=== PATIENT | female | born 1965 | race Caucasian/White ===

== ENCOUNTER 2016-09-02 13:30 | Emergency (ER) | payer SELFPAY ==
[~2016-09-02] VITALS: Ht 177.8 cm; Wt 110.0 kg
[~2016-09-02 13:30] MED LIST: ALBU0.086 NEB; ALBU8I INH; DICL75 PO; IBUP800T23 PO; METF500 PO; METH750T2 PO; TRAZ300T2 PO; TYLE3 PO; VENL100T PO
[2016-09-02 13:32] VITALS: BP 132/61; PULSE 93; RESP 20; TEMP 97.7; O2SAT 94
--- NOTE | 2016-09-02 14:19 | PD ---
HPI . sinus and ear problems Chief Complaint: ENT Complaint Time Seen by Provider: 14:19 Travel History International Travel<30 days: No Contact w/Intl Traveler<30days: No Traveled to known affect area: No History of Present Illness HPI 51 yr old female with diabetes here with complaints of sinus problems and ear pressure for a few days (4). Patient is concerned she has to return to work and thinks that she needs an antibiotic. Her primary care provider is Dr. Winston and she fears she will not be able to get into his office before needing to return to work. She admits to ear pain mainly on the right side. She has some head fullness and pressure in her face. She denies any fever or chills. She has no other complaints. PFSH Past Medical History Hx Anticoagulant Therapy: No Asthma: Yes Anxiety: Yes Depression: Yes Cardiovascular Problems: Yes (MUMMUR) Chemotherapy: No Cerebrovascular Accident: No Diabetes: Yes Diminished Hearing: No Fibromyalgia: Yes Musculoskeletal: Yes (CHRONIC BACK PAIN ) Respiratory: Yes (ASTHMA) Immunizations Current: Yes Past Surgical History Gynecologic Surgery: Yes (HYSTERECTOMY) Hysterectomy: Yes Tonsillectomy: Yes Social History Alcohol Use: No Tobacco Use: No Substance Use: No Allergies-Medications (Allergen,Severity, Reaction): Coded Allergies: Erythromycin (Verified Allergy, Unknown, GI UPSET, 09/02/16) Flexeril (Verified Allergy, Unknown, HALLUCINATIONS, 09/02/16) Ultram (Verified Allergy, Unknown, 09/02/16) Reported Meds & Prescriptions Reported Meds & Active Scripts Active Augmentin (Amoxicillin-Clavulanate) 875-125 mg Tab 875 Mg PO BID not for use in CrCl <30 ml/min. Review of Systems General / Constitutional: No: Fever Eyes: No: Visual changes HENT: Positive: Congestion, Earache, Other (facial pressure), No: Headaches, Ear Discharge Cardiovascular: No: Chest Pain or Discomfort Respiratory: No: Shortness of Breath Gastrointestinal: No: Abdominal Pain Genitourinary: No: Dysuria Musculoskeletal: No: Pain Skin: No Rash Neurologic: No: Weakness Psychiatric: No: Depression Endocrine: No: Polydipsia Hematologic/Lymphatic: No: Easy Bruising Physical Exam Narrative GENERAL: AAO x 3, no acute distress, Well-nourished, well-developed patient. SKIN: Warm and dry. No visible rashes or bruising. HEAD: Normocephalic and atraumatic. EYES: No scleral icterus. No injection or drainage. ENT: No nasal drainage noted. Mucous membranes pink. Airway patent. Mild postnasal drip. No posterior pharynx erythema or exudates. TMs with fluid bubbles bilaterally. No bulging. There is frontal and maxillary sinus tenderness on palpation of the face. NECK: Supple, trachea midline. No JVD. No lymphadenopathy CARDIOVASCULAR: Regular rate and rhythm without murmurs, gallops, or rubs. RESPIRATORY: Breath sounds equal bilaterally. No accessory muscle use. No rhonchi or rales. GASTROINTESTINAL: Abdomen soft, non-tender, nondistended. EXTREMITIES: No cyanosis or edema. BACK: Nontender without obvious deformity. No CVA tenderness. PSYCH: AAO x 3, normal affect. Data Data Last Documented VS Vital Signs Date Time Temp Pulse Resp B/P Pulse Ox O2 Delivery O2 Flow Rate FiO2 09/02/16 13:32 97.7 93 20 132/61 94 Room Air [facility] Medical Decision Making Medical Screen Exam Complete: Yes Emergency Medical Condition: Yes Medical Record Reviewed: Yes Differential Diagnosis Sinusitis, pharyngitis, otitis media Narrative Course 51 yr old female with diabetes here with complaints of sinus problems and ear pressure for a few days (4). Patient is concerned she has to return to work and thinks that she needs an antibiotic. Her primary care provider is Dr. Winston and she fears she will not be able to get into his office before needing to return to work. She admits to ear pain mainly on the right side. She has some head fullness and pressure in her face. She denies any fever or chills. She has no other complaints. Patient seen and examined. She does have fluid behind both of her TMs and significant maxillary and frontal sinus tenderness. I recommend treatment for sinusitis. I discussed sinusitis with her and she was understanding. Patient verbalized understanding of instructions, questions were answered, and thanked me for their care. I advised them if their condition worsens, please return to the nearest emergency room for further care. Diagnosis Primary Impression: Acute sinusitis Qualified Code: J01.00 - Acute maxillary sinusitis, recurrence not specified Patient Instructions: General Instructions, Sinusitis (ED) Additional Instructions: Please return to emergency department if your symptoms return or worsen. Follow up with your primary care provider. Take medications as prescribed. You can use [id number] Claritin daily. It will also help with your symptoms. Med/Other Pt SpecificInfo: Prescription(s) given Scripts Amoxicillin-Clavulanate (Augmentin)875-125 mg [id number] Mg PO BID #20 TAB not for use in CrCl <30 ml/min. Prov:Shweta Perez MD 09/02/16 Disposition: 01 DISCHARGE HOME Condition: Stable Debby Eagle Sep 02, 2016 14:19
[2016-09-02] MEDS ORDERED: AUGM875T PO (14:25)
== END 2016-09-02 14:48 | disposition home or self-care (01) ==
LOC: NEPB 13:30
DX: J01.90 Acute sinusitis, unspecified (principal); J45.909 Unspecified asthma, uncomplicated; E11.9 Type 2 diabetes mellitus without complications
CPT/HCPCS: 99283

== ENCOUNTER 2017-01-08 11:47 | Emergency (ER) | payer SELFPAY ==
[~2017-01-08] VITALS: Ht 177.8 cm; Wt 120.0 kg
[~2017-01-08 11:47] MED LIST changes: -ALBU0.086 NEB; -ALBU8I INH; +AUGM875T PO; -DICL75 PO; -IBUP800T23 PO; -METF500 PO; -METH750T2 PO; -TRAZ300T2 PO; -TYLE3 PO; -VENL100T PO
[2017-01-08 11:49] VITALS: BP 133/88; PULSE 99; RESP 16; TEMP 98.3; O2SAT 96
--- NOTE | 2017-01-08 13:28 | PD ---
HPI . thigh bump for > 6 weeks Chief Complaint: Skin Problem Time Seen by Provider: 13:27 Travel History International Travel<30 days: No Contact w/Intl Traveler<30days: No Traveled to known affect area: No History of Present Illness HPI 51 yr old female here with c/o a small bump in her thigh/vaginal area that has been present for > 6 weeks. Occasionally it will drain. It has been causing her pain and she is hoping we can do something. PFSH Past Medical History Hx Anticoagulant Therapy: No Asthma: Yes Anxiety: Yes Depression: Yes Cardiovascular Problems: Yes (MUMMUR) Chemotherapy: No Cerebrovascular Accident: No Diabetes: Yes Diminished Hearing: No Fibromyalgia: Yes Musculoskeletal: Yes (CHRONIC BACK PAIN ) Respiratory: Yes (ASTHMA) Immunizations Current: Yes ?: Not Past Surgical History Gynecologic Surgery: Yes (HYSTERECTOMY) Hysterectomy: Yes Tonsillectomy: Yes Social History Alcohol Use: No Tobacco Use: No Substance Use: No Allergies-Medications (Allergen,Severity, Reaction): Coded Allergies: Erythromycin (Verified Allergy, Unknown, GI UPSET, 09/02/16) Flexeril (Verified Allergy, Unknown, HALLUCINATIONS, 09/02/16) Ultram (Verified Allergy, Unknown, 09/02/16) Reported Meds & Prescriptions Reported Meds & Active Scripts Active Augmentin (Amoxicillin-Clavulanate) 875-125 mg Tab 875 Mg PO BID not for use in CrCl <30 ml/min. Review of Systems General / Constitutional: No: Fever Eyes: No: Visual changes HENT: No: Headaches Cardiovascular: No: Chest Pain or Discomfort Respiratory: No: Shortness of Breath Gastrointestinal: No: Abdominal Pain Genitourinary: No: Dysuria Musculoskeletal: No: Pain Skin: Positive Lesions, No Rash Neurologic: No: Weakness Psychiatric: No: Depression Endocrine: No: Polydipsia Hematologic/Lymphatic: No: Easy Bruising Physical Exam Narrative GENERAL: AAO x 3, no acute distress, Well-nourished, well-developed patient. SKIN: Warm and dry. No visible rashes or bruising. left inner thigh with a small 3 mm cystic lesion without evidence of infection, no erythema, no edema, no warmth, no fluctuance, there is dried lesion measuring 5 mm medial to labia majora HEAD: Normocephalic and atraumatic. EYES: No scleral icterus. No injection or drainage. ENT: No nasal drainage noted. Mucous membranes pink. Airway patent. NECK: Supple, trachea midline. No JVD. CARDIOVASCULAR: Regular rate and rhythm without murmurs, gallops, or rubs. RESPIRATORY: Breath sounds equal bilaterally. No accessory muscle use. No rhonchi or rales. GASTROINTESTINAL: Abdomen soft, non-tender, nondistended. EXTREMITIES: No cyanosis or edema. BACK: No obvious deformity. NEURO: CN II-12 intact, PSYCH: AAO x 3, normal affect. Data Data Last Documented VS Vital Signs Date Time Temp Pulse Resp B/P Pulse Ox O2 Delivery O2 Flow Rate FiO2 01/08/17 11:49 98.3 99 16 133/88 96 Room Air MDM Medical Decision Making Medical Screen Exam Complete: Yes Emergency Medical Condition: No Medical Record Reviewed: Yes Differential Diagnosis sebaceous cyst, papule, less likely abscess, less likely herpes Narrative Course A medical screening exam was performed: At the time of evaluation the presenting medical condition was determined not to be of an emergent nature. The patient was given the option of receiving additional care, but declined. Patient was given options for additional community resources from which to obtain care. The Patient Has Been advised to seek medical attention for their presenting complaint. The patient has been advised to return to the ER at any time if an emergent condition develops. I explained to patient that there is not much that I could do with this. It's not infected. Does not require drainage. I've advised her to follow-up with a shot examiner for further recommendations. Diagnosis Primary Impression: Encounter for medical screening examination Condition: Stable Debby Eagle Jan 08, 2017 13:27
== END 2017-01-08 13:44 | disposition left against medical advice (07) ==
LOC: NEPK 11:47
DX: L98.9 Disorder of the skin and subcutaneous tissue, unspecified (principal); J45.909 Unspecified asthma, uncomplicated; F41.9 Anxiety disorder, unspecified; F32.9 Major depressive disorder, single episode, unspecified; E11.9 Type 2 diabetes mellitus without complications; M79.7 Fibromyalgia; R01.1 Cardiac murmur, unspecified; Z79.899 Other long term (current) drug therapy; Z88.8 Allergy status to other drugs, medicaments and biological substances
CPT/HCPCS: 99281

== ENCOUNTER 2017-01-30 12:24 | Emergency (ER) | payer SELFPAY ==
[~2017-01-30] VITALS: Ht 177.8 cm; Wt 100.0 kg
[2017-01-30 12:26] VITALS: BP 143/83; PULSE 104; RESP 24; TEMP 97.4; O2SAT 96
--- NOTE | 2017-01-30 12:28 | PD ---
Physical Exam Date Seen by Provider: Jan 30, 2017 Time Seen by Provider: 12:27 Narrative 51 yo female here for cold like symptoms. Going on x 4 days. Fevers, congestion , cough and sore throat. OTCs not helping. No recent travel or sick contacts. Cough is productive. Vitals are stable in triage. Awaiting bed placement. Data Data Last Documented VS Vital Signs Date Time Temp Pulse Resp B/P Pulse Ox O2 Delivery O2 Flow Rate FiO2 01/30/17 12:26 97.4 104 24 143/83 96 Room Air [facility] Medical Record Reviewed: Yes Supervised Visit with GABRIELA: Miles Yuen Jan 30, 2017 12:28
[2017-01-30] MEDS ORDERED: METF500T PO (12:34)
[2017-01-30] MEDS ORDERED: EFFE150C PO (12:34)
[2017-01-30] MEDS ORDERED: ALBU.5I NEB (12:35)
[2017-01-30] MEDS ORDERED: VENTAER INH (12:35)
[2017-01-30 12:40] VITALS: BP 193/79; PULSE 99; RESP 22; TEMP 98.5; O2SAT 95
--- NOTE | 2017-01-30 12:48 | PD ---
HPI Chief Complaint: Cold / Flu Symptoms Time Seen by Provider: 12:48 Travel History International Travel<30 days: No Contact w/Intl Traveler<30days: No Traveled to known affect area: No History of Present Illness HPI 51-year-old female presents to the ED for evaluation of 4 day history of subjective fevers, body aches, sinus congestion, clear rhinorrhea, sore throat and cough productive of green sputum. Gradual onset, began with sinus symptoms. Patient's been using her nebulizer and taking [id number] medications with no improvement of symptoms. She endorses sick contacts, states her granddaughter has something like this from daycare. PFSH Past Medical History Hx Anticoagulant Therapy: No Asthma: Yes Anxiety: Yes Depression: Yes Cardiovascular Problems: Yes (MURMUR) Chemotherapy: No Cerebrovascular Accident: No Diabetes: Yes Patient Takes Glucophage: Yes Diminished Hearing: No Fibromyalgia: Yes GERD: Yes Musculoskeletal: Yes (CHRONIC BACK PAIN ) Respiratory: Yes (ASTHMA) Immunizations Current: Yes Tetanus Vaccination: < 5 Years ?: Not LMP: hyst Past Surgical History Gynecologic Surgery: Yes (HYSTERECTOMY) Hysterectomy: Yes Tonsillectomy: Yes Social History Alcohol Use: No Tobacco Use: No Substance Use: No Allergies-Medications (Allergen,Severity, Reaction): Coded Allergies: Erythromycin (Verified Allergy, Unknown, GI UPSET, 01/30/17) Flexeril (Verified Allergy, Unknown, HALLUCINATIONS, 01/30/17) Ultram (Verified Allergy, Unknown, 01/30/17) Reported Meds & Prescriptions Reported Meds & Active Scripts Active Promethazine-Codeine Liq 6.25-10 Mg/5 Ml Syrp 5 Ml PO Q6H PRN 7 Days Tessalon Perles (Benzonatate) 100 Mg Cap 200 Mg PO TID PRN Prednisone 20 Mg Tab 40 Mg PO DAILY Take 40 mg (2 tablets) daily for 5 days Azithromycin 250 Mg Tab 250 Mg PO DIRECTED Take 2 tabs (500 mg) on day 1 then 1 tab daily x 4 days. Reported Albuterol Neb (Albuterol Sulfate) 2.5 Mg/0.5 Ml Neb 2.5 Mg NEB Q4HR NEB PRN Note: The Albuterol Sulfate Inhalation Solution is concentrated and must be diluted. Read complete instructions carefully before using. Ventolin Hfa 18 GM Inh (Albuterol Sulfate) 90 Mcg/Act Aer 2 Puff INH Q4-6H PRN Effexor XR 24 HR (Venlafaxine HCl) 150 Mg Cap 150 Mg PO DAILY Metformin (Metformin HCl) 500 Mg Tab 500 Mg PO DAILY With a meal Review of Systems Except as stated in HPI: all other systems reviewed are Neg Physical Exam Narrative GENERAL: Well-nourished, well-developed ill-appearing white female in no acute distress. SKIN: Focused skin assessment warm/dry. HEAD: Normocephalic. ENT: Pearly baldwin tympanic membranes bilaterally. Oropharynx mildly erythematous without edema or exudates. Airway patent. EYES: No scleral icterus. No injection or drainage. NECK: Supple, trachea midline. No JVD or lymphadenopathy. CARDIOVASCULAR: Regular rate and rhythm without murmurs, gallops, or rubs. RESPIRATORY: Breath sounds tight sounding on the right. No accessory muscle use. GASTROINTESTINAL: Abdomen soft, non-tender, nondistended. Active bowel sounds. MUSCULOSKELETAL: No cyanosis, or edema. BACK: Nontender without obvious deformity. No CVA tenderness. Data Data Last Documented VS Vital Signs Date Time Temp Pulse Resp B/P Pulse Ox O2 Delivery O2 Flow Rate FiO2 01/30/17 12:40 98.5 99 22 193/79 95 Room Air Orders Influenzae A/B Antigen (01/30/17 12:38) Group A Rapid Strep Screen (01/30/17 12:38) Chest, Single Ap (01/30/17 ) Complete Blood Count With Diff (01/30/17 12:52) Comprehensive Metabolic Panel (01/30/17 12:52) Iv Access Insert/Monitor (01/30/17 12:52) Methylprednisolone So Succ Inj (Solumedr (01/30/17 13:00) Albuterol-Ipratropium Neb (Duoneb Neb) (01/30/17 13:00) Sodium Chlor 0.9% 1000 Ml Inj (Ns 1000 M (01/30/17 13:00) Strep Culture (Group A) (01/30/17 12:45) Labs Laboratory Tests Test 01/30/17 13:05 White Blood Count 11.0 TH/MM3 Red Blood Count 4.90 MIL/MM3 Hemoglobin 14.7 GM/DL Hematocrit 44.3 % Mean Corpuscular Volume 90.4 FL Mean Corpuscular Hemoglobin 30.0 PG Mean Corpuscular Hemoglobin 33.1 % Concent Red Cell Distribution Width 13.5 % Platelet Count 215 TH/MM3 Mean Platelet Volume 9.3 FL Neutrophils (%) (Auto) 61.0 % Lymphocytes (%) (Auto) 29.6 % Monocytes (%) (Auto) 7.2 % Eosinophils (%) (Auto) 1.5 % Basophils (%) (Auto) 0.7 % Neutrophils # (Auto) 6.7 TH/MM3 Lymphocytes # (Auto) 3.3 TH/MM3 Monocytes # (Auto) 0.8 TH/MM3 Eosinophils # (Auto) 0.2 TH/MM3 Basophils # (Auto) 0.1 TH/MM3 CBC Comment AUTO DIFF Differential Comment AUTO DIFF CONFIRMED Platelet Estimate NORMAL Platelet Morphology Comment NORMAL Sodium Level 131 MEQ/L Potassium Level 5.1 MEQ/L Chloride Level 99 MEQ/L Carbon Dioxide Level 20.6 MEQ/L Anion Gap 11 MEQ/L Blood Urea Nitrogen 9 MG/DL Creatinine 1.07 MG/DL Estimat Glomerular Filtration 54 ML/MIN Rate Random Glucose 302 MG/DL Calcium Level 8.8 MG/DL Total Bilirubin 0.4 MG/DL Aspartate Amino Transf 114 U/L (AST/SGOT) Alanine Aminotransferase 66 U/L (ALT/SGPT) Alkaline Phosphatase 67 U/L Total Protein 7.9 GM/DL Albumin 3.4 GM/DL [facility] Medical Decision Making Medical Screen Exam Complete: Yes Emergency Medical Condition: Yes Differential Diagnosis Bronchitis versus pneumonia versus influenza versus pharyngitis versus strep pharyngitis versus viral syndrome versus asthma exacerbation versus other Narrative Course 51-year-old female presents to the ED for evaluation of 4 day history of subjective fevers, body aches, sinus congestion, clear rhinorrhea, sore throat and cough productive of green sputum. Gradual onset, began with sinus symptoms. Vitals reviewed. Patient is hypertensive on presentation. Physical exam reveals an ill-appearing white female in no acute distress. Breath sounds are tight on the right. She is administered 1 L normal saline and 125 mg prednisone IV and do nebs 2. Rapid strep swab, flu swab negative. Chest x- ray without acute cardiopulmonary disease per radiology read. Lab work unremarkable. This is asthma exacerbation and viral syndrome. She was prescribed 40 mg prednisone twice a day 5 days, Z-Jens, Tessalon Perles and promethazine cough syrup. She is instructed take the medication as prescribed, at home nebulizing treatments, follow up with her primary care provider. She indicated understanding the instructions and is agreeable with the care plan. She is stable and discharged home. Diagnosis Primary Impression: Asthma exacerbation Additional Impression: Viral syndrome Referrals: Primary Care Physician Patient Instructions: Acute Bronchitis (ED), General Instructions Additional Instructions: Rest, hydrate. Take antibiotics as prescribed. Take steroids as prescribed. Take Tessalon Perles as prescribed to reduce cough. Continue with albuterol inhalers and nebulized treatments as previously prescribed. Continue with [id number] medications as needed for fevers and body aches. Follow-up with your primary care provider. Return to the ED for any urgent or emergent medical condition. Med/Other Pt SpecificInfo: Prescription(s) given Scripts Promethazine-Codeine Liq 6.25-10 Mg/5 Ml Syrp5 Ml PO Q6H PRN (COUGH AND/OR COLD SYMPTOMS) 7 Days Ref 0 Prov:Hoda Winston DO 01/30/17 Benzonatate (Tessalon Perles)100 Mg [id number] Mg PO TID PRN (COUGH) #20 CAP Ref 0 Prov:Hoda Winston DO 01/30/17 Prednisone 20 Mg Tab40 Mg PO DAILY #10 TAB Ref 0 Take 40 mg (2 tablets) daily for 5 days Prov:Hoda Winston DO 01/30/17 Azithromycin 250 Mg [id number] Mg PO DIRECTED #6 TAB Ref 0 Take 2 tabs (500 mg) on day 1 then 1 tab daily x 4 days. Prov:Hoda Winston DO 01/30/17 Disposition: 01 DISCHARGE HOME Condition: Stable Shweta Fernandes Jan 30, 2017 12:48
[2017-01-30] MEDS ORDERED: methylPREDNISolone SOD SUCC 125 MG/2 ML VIAL IVP ONE (13:00)
[2017-01-30] MEDS ORDERED: SODIUM CHLOR 0.9% 1000 ML INJ 1,000 ML IV ONE (13:00)
[2017-01-30] MEDS: RESP: ALBUTEROL 2.5 MG/IPRATROPIUM 0.5 MG NEB (SCH) INH (13:10)
--- NOTE | 2017-01-30 13:30 | RADRPT ---
EXAM DATE/TIME: 01/30/2017 13:03 [facility] COMPARISON: CHEST SINGLE AP, August 19, 2015, 14:11. INDICATIONS : Cough and general weakness. MEDICAL HISTORY : None. SURGICAL HISTORY : None. ENCOUNTER: Initial ACUITY: 4 - 6 days PAIN SCORE: 0/10 LOCATION: Bilateral chest FINDINGS: A single view of the chest demonstrates the lungs to be symmetrically aerated without evidence of mas s, infiltrate or effusion. The cardiomediastinal contours are unremarkable. Osseous structures are intact with mild degenerative spurring of the dorsal spine. CONCLUSION: No acute cardiopulmonary process. Alexis Mccurdy MD on January 30, 2017 at 13:28 Board Certified Radiologist. This report was verified electronically.
[2017-01-30 13:41] LABS: AUTOMATED NEUTROPHIL # 6.7 TH/MM3 (1.8-7.7); BASOPHIL # 0.1 TH/MM3 (0-0.2); BASOPHIL % 0.7 % (0.0-2.0); EOSINOPHIL # 0.2 TH/MM3 (0-0.4); EOSINOPHIL % 1.5 % (0.0-4.0); HEMATOCRIT 44.3 % (35.0-46.0); LYMPH % 29.6 % (9.0-44.0); LYMPHOCYTE # 3.3 TH/MM3 (1.0-4.8); MEAN CELL VOLUME 90.4 FL (80.0-100.0); MEAN CORPUSCULAR HGB CONC 33.1 % (32.0-36.0); MONO % 7.2 % (0.0-8.0); PLATELET COUNT 215 TH/MM3 (150-450); RED CELL DISTRIBUTION WIDTH 13.5 % (11.6-17.2)
[2017-01-30 13:44] LABS: HEMO FLAGS AUTO DIFF
[2017-01-30 13:53] LABS: ALT (GPT) 66 U/L (10-53); ANION GAP 11 MEQ/L (5-15); AST (GOT) 114 U/L (15-37); BICARBONATE 20.6 MEQ/L (21.0-32.0); BLOOD UREA NITROGEN 9 MG/DL (7-18); CHLORIDE 99 MEQ/L (98-107); GLOMERULAR FILTRATION RATE 54 ML/MIN (>89); POTASSIUM 5.1 MEQ/L (3.5-5.1); SODIUM (NA) 131 MEQ/L (136-145)
[2017-01-30 13:55] LABS: ALKALINE PHOSPHATASE 67 U/L (45-117); TOTAL BILIRUBIN ADULT 0.4 MG/DL (0.2-1.0)
[2017-01-30] MEDS ORDERED: PRED20 PO (14:07)
[2017-01-30] MEDS ORDERED: AZIT250T3 PO (14:07)
[2017-01-30] MEDS ORDERED: BENZ100 PO (14:07)
[2017-01-30 14:15] LABS: PLATELET ESTIMATE SMEAR NORMAL (NORMAL); PLATELET MORPHOLOGY NORMAL (NORMAL); SCAN/DIFF AUTO DIFF CONFIRMED
[2017-01-30] MEDS ORDERED: PROM6.256 PO (14:30)
[2017-01-30 14:58] VITALS: BP 156/90
== END 2017-01-30 15:03 | disposition home or self-care (01) ==
LOC: NEPD 12:24
DX: J45.901 Unspecified asthma with (acute) exacerbation (principal); B34.9 Viral infection, unspecified; E11.9 Type 2 diabetes mellitus without complications; K21.9 Gastro-esophageal reflux disease without esophagitis; M79.7 Fibromyalgia
CPT/HCPCS: 71010; 80053; 85025; 87081; 87804; 87880; 94640; 94664; 96361; 96374; 99284; J2930; J7030

== ENCOUNTER 2017-03-12 14:08 | Emergency (ER) | payer SELFPAY ==
[~2017-03-12 14:08] MED LIST changes: +ALBU.5I NEB; -AUGM875T PO; +AZIT250T3 PO; +BENZ100 PO; +EFFE150C PO; +METF500T PO; +PRED20 PO; +PROM6.256 PO; +VENTAER INH
[2017-03-12 14:10] VITALS: BP 125/76; PULSE 105; RESP 16; TEMP 97.8; O2SAT 92
[2017-03-12 14:11] VITALS: PULSE 98; RESP 20; O2SAT 95
[2017-03-12] MEDS ORDERED: GABA100C4 PO (14:20)
[2017-03-12] MEDS ORDERED: predniSONE 20 MG TAB PO ONE (15:15)
[2017-03-12] MEDS ORDERED: DIFL150T PO (15:15)
[2017-03-12] MEDS ORDERED: VENTAER INH (15:15)
[2017-03-12] MEDS ORDERED: PRED-503 PO (15:15)
[2017-03-12] MEDS ORDERED: AZIT500T2 PO (15:15)
[2017-03-12] MEDS ORDERED: RESP: ALBUTEROL 2.5 MG/IPRATROPIUM 0.5 MG NEB (SCH) INH ONE (15:15)
[2017-03-12] MEDS ORDERED: ALBU.5I NEB (15:15)
--- NOTE | 2017-03-12 15:18 | PD ---
HPI Chief Complaint: Cold / Flu Symptoms Time Seen by Provider: 15:13 Travel History International Travel<30 days: No Contact w/Intl Traveler<30days: No Traveled to known affect area: No History of Present Illness HPI 52-year-old female presents emergency Department with complaint of cough and nasal congestion 1 week. With history of asthma and has been having to use her inhaler and nebulizer more frequently. Reports chest tightness and shortness of breath. Last used her albuterol treatment this morning. Reports throat irritation. Reports coughing up green tinged phlegm. Denies ear pain. Denies fever, vomiting. Has not taken any other medications or tried any other treatments to alleviate her symptoms. Symptoms are mild in severity. Has no medical complaints. Allergies to cyclobenzaprine, erythromycin base, tramadol. No other modifying factors or associated signs and symptoms. PFSH Past Medical History Hx Anticoagulant Therapy: No Asthma: Yes Anxiety: Yes Depression: Yes Cardiovascular Problems: Yes (MURMUR) Chemotherapy: No Cerebrovascular Accident: No Diabetes: Yes Patient Takes Glucophage: No Diminished Hearing: No Fibromyalgia: Yes GERD: Yes Musculoskeletal: Yes (CHRONIC BACK PAIN ) Respiratory: Yes (ASTHMA) Immunizations Current: Yes ?: Not Menopausal: Yes Past Surgical History Gynecologic Surgery: Yes (HYSTERECTOMY) Hysterectomy: Yes Tonsillectomy: Yes Social History Alcohol Use: No Tobacco Use: No Substance Use: No Allergies-Medications (Allergen,Severity, Reaction): Coded Allergies: cyclobenzaprine (Unverified Allergy, Unknown, HALLUCINATIONS, 03/12/17) erythromycin base (Unverified Allergy, Unknown, GI UPSET, 03/12/17) tramadol (Unverified Allergy, Unknown, 03/12/17) Reported Meds & Prescriptions Reported Meds & Active Scripts Active Diflucan (Fluconazole) 150 Mg Tab 150 Mg PO ONCE Deltasone (Prednisone) 20 Mg Tab 40 Mg PO DAILY 4 Days start 03/13/2017 Azithromycin 500 Mg Tab 500 Mg PO DAILY Albuterol Neb (Albuterol Sulfate) 2.5 Mg/0.5 Ml Neb 2.5 Mg NEB Q4HR NEB PRN Note: The Albuterol Sulfate Inhalation Solution is concentrated and must be diluted. Read complete instructions carefully before using. Ventolin Hfa 18 GM Inh (Albuterol Sulfate) 90 Mcg/Act Aer 2 Puff INH Q4-6H PRN Reported Gabapentin 100 Mg Cap 100 Mg PO DAILY Effexor XR 24 HR (Venlafaxine HCl) 150 Mg Cap 150 Mg PO DAILY Metformin (Metformin HCl) 500 Mg Tab 500 Mg PO DAILY With a meal Review of Systems Except as stated in HPI: all other systems reviewed are Neg Physical Exam Narrative GENERAL: Well-nourished, well-developed female patient, in no acute distress; afebrile, nontoxic-appearing SKIN: Warm and dry. HEAD: Atraumatic. Normocephalic. EYES: Pupils equal and round. No scleral icterus. No injection or drainage. ENT: Mucosa pink and moist. No erythema or exudates. No uvular edema. No uvular , palatal, or tonsillar deviation. Airway patent. Nares without nasal blood, purulent drainage or septal hematoma. EARS: Bilateral pinnae and external canals appear within normal limits. Bilateral tympanic membranes without erythema, dullness or perforation. NECK: Trachea midline. No lymphadenopathy. CARDIOVASCULAR: Regular rate and rhythm. No murmur appreciated. RESPIRATORY: No accessory muscle use. Lungs with mild Wheezing throughout to auscultation. Breath sounds equal bilaterally. No retractions or tachypnea. No Audible wheezing noted. GASTROINTESTINAL: Rounded. MUSCULOSKELETAL: No obvious deformities. No clubbing. No cyanosis. No edema. NEUROLOGICAL: Awake and alert. Oriented 3. No obvious cranial nerve deficits. Motor grossly within normal limits. Normal speech. Moves all extremities. 5/5 strength to all extremities. PSYCHIATRIC: Appropriate mood and affect; insight and judgment normal. Data Data Last Documented VS Vital Signs Date Time Temp Pulse Resp B/P (MAP) Pulse Ox O2 Delivery O2 Flow Rate FiO2 03/12/17 14:38 Room Air 03/12/17 14:11 98 20 95 03/12/17 14:10 97.8 125/76 (92) Orders Orders Prednisone (Deltasone) (03/12/17 15:15) Albuterol-Ipratropium Neb (Duoneb Neb) (03/12/17 15:15) MDM Medical Decision Making Medical Screen Exam Complete: Yes Emergency Medical Condition: Yes Medical Record Reviewed: Yes Differential Diagnosis Upper respiratory infection, asthma exacerbation, viral illness Narrative Course 52-year-old female with cold symptoms times one week and asthma exacerbation. She is in no acute distress and without retractions or tachypnea. Mild wheezing throughout on auscultation of the lungs. Deltasone and DuoNeb administered in the ER. I will prescribed the patient antibiotics for home secondary to length of illness. Azithromycin, albuterol inhaler and nebs, Deltasone prescribed for home. Patient requesting prescription for Diflucan for yeast infection after taking antibiotics. Diflucan prescribed for home. Instructed patient to follow up with primary care provider. Patient verbalizes understanding and agreement with treatment plan. Patient is medically cleared and stable for discharge. Discussed reasons to return to the emergency department. Patient agrees with treatment plan. The patients vital signs are stable and the patient is stable for outpatient follow-up and treatment. Patient discharged home, stable and in no acute distress. Diagnosis Primary Impression: URI (upper respiratory infection) Qualified Codes: J06.9 - Acute upper respiratory infection, unspecified Additional Impression: Asthma exacerbation Referrals: Primary Care Physician Patient Instructions: Asthma (ED), General Instructions, Upper Respiratory Infection (ED) Departure Forms: Tests/Procedures, Work Release Enter return to work date: Mar 14, 2017 Additional Instructions: Antibiotics as prescribed Use Albuterol inhaler as prescribed Take oral steroids as prescribed and complete full course [id number] decongestants or antihistamines as directed and as needed for symptom management Your cough can last 4-6 weeks Drink plenty of fluids to prevent dehydration Use hot air humidifier to decrease cough exacerbation Turn off ceiling fans and sleep with head of bed elevated Avoid triggers such as second hand smoke, dust, known allergens Follow-up with your primary care provider Return to the emergency department immediately with worsening of symptoms Med/Other Pt SpecificInfo: Prescription(s) given Scripts Benzonatate (Tessalon Perles) 100 Mg Cap 100 MG PO TID Y for COUGH, #10 CAP 0 Refills Prov: Dacia RuizP 03/12/17 Fluconazole (Diflucan) 150 Mg Tab 150 MG PO ONCE for Infection, #1 TAB 0 Refills Prov: Dacia RuizP 03/12/17 Prednisone (Deltasone) 20 Mg Tab 40 MG PO DAILY for 4 Days, #8 TAB 0 Refills start 03/13/2017 Prov: Dacia RuizP 03/12/17 Azithromycin (Azithromycin) 500 Mg Tab 500 MG PO DAILY for Infection, #5 TAB 0 Refills Prov: Dacia Ruiz 03/12/17 Albuterol Neb (Albuterol Neb) 2.5 Mg/0.5 Ml Neb 2.5 MG NEB Q4HR NEB Y for SHORTNESS OF BREATH, #1 BOX Note: The Albuterol Sulfate Inhalation Solution is concentrated and must be diluted. Read complete instructions carefully before using. Prov: Dacia Ruiz 03/12/17 Albuterol 18 GM Inh (Ventolin Hfa 18 GM Inh) 90 Mcg/Act Aer 2 PUFF INH Q4-6H Y for SHORTNESS OF BREATH, #1 INHALER 0 Refills Prov: Dacia Ruiz 03/12/17 Disposition: 01 DISCHARGE HOME Condition: Stable Dacia Ruiz Mar 12, 2017 15:18
[2017-03-12] MEDS ORDERED: BENZ100 PO (15:29)
== END 2017-03-12 15:45 | disposition home or self-care (01) ==
LOC: NEPK 14:08
DX: J06.9 Acute upper respiratory infection, unspecified (principal); J45.901 Unspecified asthma with (acute) exacerbation; F41.9 Anxiety disorder, unspecified; F32.9 Major depressive disorder, single episode, unspecified; E11.9 Type 2 diabetes mellitus without complications; M79.7 Fibromyalgia; K21.9 Gastro-esophageal reflux disease without esophagitis; R01.1 Cardiac murmur, unspecified
CPT/HCPCS: 94664; 99284; J7512

== ENCOUNTER 2017-07-08 11:19 | Emergency (ER) | payer SELFPAY ==
[~2017-07-08 11:19] MED LIST changes: -AZIT250T3 PO; +AZIT500T2 PO; +DIFL150T PO; +GABA100C4 PO; +PRED-503 PO; -PRED20 PO; -PROM6.256 PO
[2017-07-08 11:39] VITALS: BP 130/60; PULSE 84; RESP 20; TEMP 97.7; O2SAT 96
[2017-07-08 13:59] VITALS: BP 127/63; PULSE 73; O2SAT 96
[2017-07-08] MEDS ORDERED: TRAZ100T10 PO (14:14)
[2017-07-08] MEDS ORDERED: ZOLO25TA PO (14:14)
[2017-07-08] MEDS ORDERED: SODIUM CHLOR 0.9% 1000 ML INJ 1,000 ML IV SCH (14:31)
[2017-07-08] MEDS ORDERED: ALUMINUM/MAGNESIUM/SIMETH 30 ML CUP PO ONE (14:45)
[2017-07-08] MEDS ORDERED: FAMOTIDINE 20 MG/2 ML VIAL IV PUSH ONE (14:45)
[2017-07-08] MEDS ORDERED: ONDANSETRON HCL 4 MG/2 ML VIAL IVP ONE (14:45)
[2017-07-08] MEDS ORDERED: LIDOCAINE VISCOUS 2% SOLN 15 ML UDC PO ONE (14:45)
[2017-07-08] MEDS ORDERED: SODIUM CHLORIDE 0.9% FLUSH 10 ML FLUSH IV FLUSH PRN (14:45)
--- NOTE | 2017-07-08 14:47 | RADRPT ---
EXAM DATE/TIME: 07/08/2017 14:40 [facility] COMPARISON: CHEST SINGLE AP, January 30, 2017, 13:03. INDICATIONS : Chest pain. MEDICAL HISTORY : Hiatal hernia. SURGICAL HISTORY : None. ENCOUNTER: Initial ACUITY: 1 day PAIN SCORE: 2/10 LOCATION: Bilateral chest FINDINGS: A single view of the chest demonstrates the lungs to be symmetrically aerated without evidence of mas s, infiltrate or effusion. The cardiomediastinal contours are unremarkable. Osseous structures are intact. CONCLUSION: Normal examination for a patient of this age. No significant change has occurred. Eliceo Gonzalez MD on July 08, 2017 at 14:44 Board Certified Radiologist. This report was verified electronically.
[2017-07-08 15:00] VITALS: O2SAT 98
[2017-07-08 15:18] LABS: BASOPHIL # 0.1 TH/MM3 (0-0.2); BASOPHIL % 0.8 % (0.0-2.0); EOSINOPHIL # 0.1 TH/MM3 (0-0.4); EOSINOPHIL % 1.8 % (0.0-4.0); HEMATOCRIT 45.3 % (35.0-46.0); HEMOGLOBIN 14.6 GM/DL (11.6-15.3); LYMPHOCYTE # 2.6 TH/MM3 (1.0-4.8); MEAN CORPUSCULAR HGB CONC 32.2 % (32.0-36.0); MEAN PLATELET VOLUME 8.7 FL (7.0-11.0); MONO % 5.9 % (0.0-8.0); MONOCYTE # 0.5 TH/MM3 (0-0.9); NEUT % 59.5 % (16.0-70.0); PLATELET COUNT 223 TH/MM3 (150-450); RED BLOOD COUNT 5.21 MIL/MM3 (4.00-5.30); RED CELL DISTRIBUTION WIDTH 11.9 % (11.6-17.2); WHITE BLOOD COUNT 8.3 TH/MM3 (4.0-11.0)
[2017-07-08 15:28] LABS: CHLORIDE 100 MEQ/L (98-107); SODIUM (NA) 136 MEQ/L (136-145)
[2017-07-08 15:31] LABS: BILIRUBIN, URINE NEG (NEG); BLOOD, URINE NEG (NEG); GLUCOSE,URINE 1000 OR GREATER mg/dL (NEG); KETONE, URINE NEG (NEG); NITRITE,URINE NEG (NEG); PH, URINE 5.5 (5.0-8.5); URINE LEUKOCYTE ESTERASE NEG (NEG)
[2017-07-08 15:32] LABS: ALBUMIN 3.7 GM/DL (3.4-5.0); BICARBONATE 27.7 MEQ/L (21.0-32.0); BLOOD UREA NITROGEN 9 MG/DL (7-18); CALCIUM 8.4 MG/DL (8.5-10.1); GLUCOSE,RANDOM 180 MG/DL (74-106); LIPASE 138 U/L (73-393); PROTHROMBIN TIME - PATIENT 10.5 SEC (9.8-11.6)
[2017-07-08 15:35] LABS: ALT (GPT) 35 U/L (10-53); AST (GOT) 38 U/L (15-37); CREATININE 0.65 MG/DL (0.50-1.00); GLOMERULAR FILTRATION RATE 95 ML/MIN (>89)
[2017-07-08 15:37] LABS: TOTAL BILIRUBIN ADULT 0.4 MG/DL (0.2-1.0); TOTAL PROTEIN 7.6 GM/DL (6.4-8.2)
[2017-07-08 15:38] LABS: ALKALINE PHOSPHATASE 65 U/L (45-117)
[2017-07-08 15:40] LABS: TROPONIN I LESS THAN 0.02 NG/ML (0.02-0.05)
[2017-07-08 15:52] LABS: URINE COLOR YELLOW (YELLW/STRAW)
[2017-07-08 15:53] LABS: BACTERIA, URINE FEW /hpf; RBC, URINE 0-3 /hpf (0-3)
[2017-07-08] MEDS ORDERED: ZANT150T2 PO (16:49)
--- NOTE | 2017-07-08 16:49 | PD ---
HPI Chief Complaint: Chest Pain Time Seen by Provider: 14:00 Travel History International Travel<30 days: No Contact w/Intl Traveler<30days: No Traveled to known affect area: No History of Present Illness HPI Patient is a 52-year-old female who comes in complaining of vomiting and severe GERD. She says she has had an issue with reflux and was told that she has a hiatal hernia. She says it's been getting worse and for the past 4 days, she seems to regurgitate everything she eats. She did drink some fluids earlier today without any issue. She ate some rice without any issue. She says that the vomiting has caused her to have some pain in her chest. She also feels burning from her abdomen up into her chest. This all is been going on for 3 or 4 days now. She takes [id number] acid reflux medications. She says these are not helping. She denies fever or chills. She denies shortness of breath. PFSH Past Medical History Hx Anticoagulant Therapy: No Asthma: Yes Anxiety: Yes Depression: Yes Cardiovascular Problems: Yes (MURMUR) Chemotherapy: No Cerebrovascular Accident: No Diabetes: Yes Patient Takes Glucophage: Yes Diminished Hearing: No Fibromyalgia: Yes GERD: Yes Musculoskeletal: Yes (CHRONIC BACK PAIN ) Respiratory: Yes (ASTHMA) Immunizations Current: Yes Tetanus Vaccination: Unknown Influenza Vaccination: No ?: Not Menopausal: Yes Past Surgical History Gynecologic Surgery: Yes (HYSTERECTOMY) Hysterectomy: Yes Tonsillectomy: Yes Social History Alcohol Use: No Tobacco Use: No Substance Use: No Allergies-Medications (Allergen,Severity, Reaction): Coded Allergies: cyclobenzaprine (Unverified Allergy, Unknown, HALLUCINATIONS, 07/08/17) erythromycin base (Unverified Allergy, Unknown, GI UPSET, 07/08/17) tramadol (Unverified Allergy, Unknown, 07/08/17) Reported Meds & Prescriptions Reported Meds & Active Scripts Active Albuterol Neb (Albuterol Sulfate) 2.5 Mg/0.5 Ml Neb 2.5 Mg NEB Q4HR NEB PRN Note: The Albuterol Sulfate Inhalation Solution is concentrated and must be diluted. Read complete instructions carefully before using. Ventolin Hfa 18 GM Inh (Albuterol Sulfate) 90 Mcg/Act Aer 2 Puff INH Q4-6H PRN Reported Trazodone (Trazodone HCl) 100 Mg Tablet 100 Mg PO HS Zoloft (Sertraline HCl) 25 Mg Tab 25 Mg PO DAILY Gabapentin 100 Mg Cap 100 Mg PO DAILY Metformin (Metformin HCl) 500 Mg Tab 500 Mg PO DAILY With a meal Review of Systems Except as stated in HPI: all other systems reviewed are Neg General / Constitutional: No: Fever, Chills HENT: No: Headaches, Lightheadedness Cardiovascular: Positive: Chest Pain or Discomfort Respiratory: No: Shortness of Breath Gastrointestinal: Positive: Nausea, Vomiting, Abdominal Pain Genitourinary: No: Dysuria Musculoskeletal: No: Edema, Pain Skin: No Rash, No Change in Pigmentation Neurologic: No: Weakness, Dizziness Physical Exam Narrative GENERAL: Awake and alert, no acute distress. SKIN: Focused skin assessment warm/dry. HEAD: Atraumatic. Normocephalic. EYES: Pupils equal and round. No scleral icterus. ENT: Mucous membranes pink and moist. NECK: Trachea midline. No JVD. CARDIOVASCULAR: Regular rate and rhythm. No murmur appreciated. No tenderness to palpation of the chest. RESPIRATORY: No accessory muscle use. Clear to auscultation. Breath sounds equal bilaterally. GASTROINTESTINAL: Abdomen soft, non-tender, nondistended. MUSCULOSKELETAL: No obvious deformities. No clubbing. No cyanosis. No edema. NEUROLOGICAL: Awake and alert. No obvious cranial nerve deficits. Motor grossly within normal limits. Normal speech. PSYCHIATRIC: Appropriate mood and affect; insight and judgment normal. Data Data Last Documented VS Vital Signs Date Time Temp Pulse Resp B/P (MAP) Pulse Ox O2 Delivery O2 Flow Rate FiO2 07/08/17 13:59 73 127/63 (84) 96 07/08/17 11:39 97.7 20 Orders Orders Complete Blood Count With Diff (07/08/17 14:31) Comprehensive Metabolic Panel (07/08/17 14:31) Lipase (07/08/17 14:31) Prothrombin Time / Inr (Pt) (07/08/17 14:31) Act Partial Throm Time (Ptt) (07/08/17 14:31) Urinalysis - C+S If Indicated (07/08/17 14:31) Iv Access Insert/Monitor (07/08/17 14:31) Ecg Monitoring (07/08/17 14:31) Oximetry (07/08/17 14:31) Ondansetron Inj (Zofran Inj) (07/08/17 14:45) Sodium Chlor 0.9% 1000 Ml Inj (Ns 1000 M (07/08/17 14:31) Sodium Chloride 0.9% Flush (Ns Flush) (07/08/17 14:45) Electrocardiogram (07/08/17 14:31) Famotidine Inj (Pepcid Inj) (07/08/17 14:45) Al-Mag Hy-Si 40-40-4 Mg/Ml Liq (Mag-Al P (07/08/17 14:45) Lidocaine 2% Viscous (Xylocaine 2% Visco (07/08/17 14:45) Troponin I (07/08/17 14:31) Chest, Single Ap (07/08/17 ) Labs Laboratory Tests Test 07/08/17 15:05 White Blood Count 8.3 TH/MM3 Red Blood Count 5.21 MIL/MM3 Hemoglobin 14.6 GM/DL Hematocrit 45.3 % Mean Corpuscular Volume 87.0 FL Mean Corpuscular Hemoglobin 28.0 PG Mean Corpuscular Hemoglobin Concent 32.2 % Red Cell Distribution Width 11.9 % Platelet Count 223 TH/MM3 Mean Platelet Volume 8.7 FL Neutrophils (%) (Auto) 59.5 % Lymphocytes (%) (Auto) 32.0 % Monocytes (%) (Auto) 5.9 % Eosinophils (%) (Auto) 1.8 % Basophils (%) (Auto) 0.8 % Neutrophils # (Auto) 5.0 TH/MM3 Lymphocytes # (Auto) 2.6 TH/MM3 Monocytes # (Auto) 0.5 TH/MM3 Eosinophils # (Auto) 0.1 TH/MM3 Basophils # (Auto) 0.1 TH/MM3 CBC Comment DIFF FINAL Differential Comment Prothrombin Time 10.5 SEC Prothromb Time International Ratio 1.0 RATIO Activated Partial Thromboplast Time 23.3 SEC Urine Color YELLOW Urine Turbidity CLEAR Urine pH 5.5 Urine Specific Baker 1.030 Urine Protein NEG mg/dL Urine Glucose (UA) 1000 OR GREATER mg/dL Urine Ketones NEG mg/dL Urine Occult Blood NEG Urine Nitrite NEG Urine Bilirubin NEG Urine Leukocyte Esterase NEG Urine RBC 0-3 /hpf Urine WBC 6-8 /hpf Urine Squamous Epithelial Cells 6-8 /hpf Urine Bacteria FEW /hpf Microscopic Urinalysis Comment CULT NOT INDICATED Blood Urea Nitrogen 9 MG/DL Creatinine 0.65 MG/DL Random Glucose 180 MG/DL Total Protein 7.6 GM/DL Albumin 3.7 GM/DL Calcium Level 8.4 MG/DL Alkaline Phosphatase 65 U/L Aspartate Amino Transf (AST/SGOT) 38 U/L Alanine Aminotransferase (ALT/SGPT) 35 U/L Total Bilirubin 0.4 MG/DL Sodium Level 136 MEQ/L Potassium Level 3.7 MEQ/L Chloride Level 100 MEQ/L Carbon Dioxide Level 27.7 MEQ/L Anion Gap 8 MEQ/L Estimat Glomerular Filtration Rate 95 ML/MIN Troponin I LESS THAN 0.02 NG/ML Lipase 138 U/L MDM Medical Decision Making Medical Screen Exam Complete: Yes Emergency Medical Condition: Yes Medical Record Reviewed: Yes Interpretation(s) ECG shows normal sinus rhythm at a rate of 77, no ST elevation or depression, normal intervals Differential Diagnosis GERD versus gastritis versus gastroparesis Narrative Course Patient is a 52-year-old female who comes in complaining of vomiting and burning in her chest. The chest pain started after the vomiting. IV established, labs sent. Labs show no acute abnormalities. Chest x-ray shows no acute abnormalities. Patient given GI cocktail with resolution of her symptoms. She'll be discharged with prescription for Zantac. Advised take Maalox as needed. Advised follow-up with gastroenterology. Advised to return any time for any worsening symptoms. Last 24 hours Impressions Chest X-Ray 07/08/17 0000 Signed Impressions: Service Date/Time: Saturday, July 08, 2017 14:40 - CONCLUSION: Normal examination for a patient of this age. No significant change has occurred. Eliceo Gonzalez MD Diagnosis Primary Impression: GERD (gastroesophageal reflux disease) Qualified Codes: K21.9 - Gastro-esophageal reflux disease without esophagitis Additional Impression: Vomiting Qualified Codes: R11.2 - Nausea with vomiting, unspecified Referrals: Duke Paz MD call for appointment Patient Instructions: Gastroesophageal Reflux Disease (ED), General Instructions Additional Instructions: Follow up with gastroenterology. Take Zantac and Maalox. Return to the ED as needed for any worsening symptoms. Scripts Ranitidine (Zantac) 150 Mg Tab 150 MG PO BID for Reduce Stomach Acid, #60 TAB 0 Refills Prov: Maia Kerns MD 07/08/17 Disposition: 01 DISCHARGE HOME Condition: Stable Gershen,Maia B MD Jul 08, 2017 16:49
--- NOTE | 2017-07-09 16:19 | EKG ---
Date Performed: 07/08/2017 Time Performed: 11:24:59 PTAGE: 52 years EKG: Sinus rhythm LOW QRS VOLTAGE IN PRECORDIAL LEADS Since previous tracing, no significant change noted BORDERLINE E CG PREVIOUS TRACING : 08/19/2015 14.43.54 DOCTOR: Joanna Holguin Interpretating Date/Time 07/09/2017 16:17:21
== END 2017-07-08 16:55 | disposition home or self-care (01) ==
LOC: PHED 11:19
DX: K21.9 Gastro-esophageal reflux disease without esophagitis (principal); R11.2 Nausea with vomiting, unspecified; R94.31 Abnormal electrocardiogram [ECG] [EKG]; E11.9 Type 2 diabetes mellitus without complications; M79.7 Fibromyalgia; J45.909 Unspecified asthma, uncomplicated; F32.9 Major depressive disorder, single episode, unspecified; K44.9 Diaphragmatic hernia without obstruction or gangrene; Z88.1 Allergy status to other antibiotic agents; Z88.8 Allergy status to other drugs, medicaments and biological substances; Z79.84 Long term (current) use of oral hypoglycemic drugs; Z79.899 Other long term (current) drug therapy
CPT/HCPCS: 71045; 80053; 81001; 83690; 84484; 85025; 85610; 85730; 93005; 96361; 96374; 96375; 99285; J2405; J7030

== ENCOUNTER 2017-10-26 15:59 | Observation (INO) | payer SELFPAY ==
[~2017-10-26 15:59] MED LIST changes: -AZIT500T2 PO; -BENZ100 PO; -DIFL150T PO; -EFFE150C PO; -PRED-503 PO; +TRAZ100T10 PO; +ZANT150T2 PO; +ZOLO25TA PO
--- NOTE | 2017-10-26 16:07 | PD ---
HPI Chief Complaint: Neck pain Time Seen by Provider: 16:07 Travel History International Travel<30 days: No Contact w/Intl Traveler<30days: No Traveled to known affect area: No History of Present Illness HPI 52-year-old female came to the emergency room for sudden onset neck pain bilaterally radiating up to her jaw and down both arms 1 hour prior to arriving to the emergency room. Patient thought that she was having a heart attack. There is a strong family history of coronary artery disease. She was extremely worked up and anxious because of this feeling. Patient says that because of the anxiety she started to cry and now could not stop crying. She was sobbing as I was talking to her. Says her pain is still there. It seems to be easing down a little bit. Patient never had a chest pain or shortness of breath. Patient had a stress test 3 years ago that was negative. She is a diabetic. Vital signs are relatively stable. No aggravating or relieving factors identified. PFSH Past Medical History Narrative Medical List of her past medical, surgical, social and family history reviewed from the nursing note. Hx Anticoagulant Therapy: No Asthma: Yes Anxiety: Yes Depression: Yes Cardiovascular Problems: Yes (MURMUR) Chemotherapy: No Cerebrovascular Accident: No Diabetes: Yes Diminished Hearing: No Fibromyalgia: Yes GERD: Yes Musculoskeletal: Yes (CHRONIC BACK PAIN ) Respiratory: Yes (ASTHMA) Immunizations Current: Yes Menopausal: Yes Past Surgical History Gynecologic Surgery: Yes (HYSTERECTOMY) Hysterectomy: Yes Tonsillectomy: Yes Social History Alcohol Use: No Tobacco Use: No Substance Use: No Allergies-Medications (Allergen,Severity, Reaction): Coded Allergies: cyclobenzaprine (Unverified Allergy, Unknown, HALLUCINATIONS, 10/26/17) erythromycin base (Unverified Allergy, Unknown, GI UPSET, 10/26/17) tramadol (Unverified Allergy, Unknown, GI UPSET, 10/26/17) Comments List of her allergies reviewed from the nursing note. Reported Meds & Prescriptions Reported Meds & Active Scripts Active Albuterol Neb (Albuterol Sulfate) 2.5 Mg/0.5 Ml Neb 2.5 Mg NEB Q4HR NEB PRN Note: The Albuterol Sulfate Inhalation Solution is concentrated and must be diluted. Read complete instructions carefully before using. Ventolin Hfa 18 GM Inh (Albuterol Sulfate) 90 Mcg/Act Aer 2 Puff INH Q4-6H PRN Reported Trazodone (Trazodone HCl) 100 Mg Tablet 100 Mg PO HS Zoloft (Sertraline HCl) 25 Mg Tab 25 Mg PO DAILY Gabapentin 100 Mg Cap 100 Mg PO DAILY Metformin (Metformin HCl) 500 Mg Tab 500 Mg PO DAILY With a meal Narrative Medication List of her home medications reviewed from the nursing note Review of Systems Except as stated in HPI: all other systems reviewed are Neg Musculoskeletal: Positive: Pain Physical Exam Narrative GENERAL: Awake, alert, extremely anxious, sobbing, moderate distress SKIN: Focused skin assessment warm/dry. HEAD: Atraumatic. Normocephalic. EYES: Pupils equal and round. No scleral icterus. No injection or drainage. ENT: No nasal bleeding or discharge. Mucous membranes pink and moist. NECK: Trachea midline. No JVD. CARDIOVASCULAR: Regular rate and rhythm. No murmur appreciated. RESPIRATORY: No accessory muscle use. Clear to auscultation. Breath sounds equal bilaterally. GASTROINTESTINAL: Abdomen soft, non-tender, nondistended. Hepatic and splenic margins not palpable. MUSCULOSKELETAL: No obvious deformities. No clubbing. No cyanosis. No edema. NEUROLOGICAL: Awake and alert. No obvious cranial nerve deficits. Motor grossly within normal limits. Normal speech. PSYCHIATRIC: Appropriate mood and affect; insight and judgment normal. Data Data Last Documented VS Orders Orders Electrocardiogram (10/26/17 16:16) Basic Metabolic Panel (Bmp) (10/26/17 16:16) Complete Blood Count With Diff (10/26/17 16:16) Magnesium (Mg) (10/26/17 16:16) Prothrombin Time / Inr (Pt) (10/26/17 16:16) Troponin I (10/26/17 16:16) Chest, Single Ap (10/26/17 16:16) Ecg Monitoring (10/26/17 16:16) Bilateral Bp Monitoring (10/26/17 16:16) Iv Access Insert/Monitor (10/26/17 16:16) Oximetry (10/26/17 16:16) Oxygen Administration (10/26/17 16:16) Aspirin Chew (Aspirin Chew) (10/26/17 16:30) Sodium Chloride 0.9% Flush (Ns Flush) (10/26/17 16:30) Lorazepam Inj (Ativan Inj) (10/26/17 16:30) Admit Order (Ed Use Only) (10/26/17 17:24) Labs Laboratory Tests Test 10/26/17 16:30 White Blood Count 8.6 TH/MM3 Red Blood Count 4.79 MIL/MM3 Hemoglobin 14.0 GM/DL Hematocrit 41.8 % Mean Corpuscular Volume 87.3 FL Mean Corpuscular Hemoglobin 29.3 PG Mean Corpuscular Hemoglobin Concent 33.6 % Red Cell Distribution Width 12.5 % Platelet Count 233 TH/MM3 Mean Platelet Volume 8.8 FL Neutrophils (%) (Auto) 55.9 % Lymphocytes (%) (Auto) 35.3 % Monocytes (%) (Auto) 7.4 % Eosinophils (%) (Auto) 0.7 % Basophils (%) (Auto) 0.7 % Neutrophils # (Auto) 4.8 TH/MM3 Lymphocytes # (Auto) 3.1 TH/MM3 Monocytes # (Auto) 0.6 TH/MM3 Eosinophils # (Auto) 0.1 TH/MM3 Basophils # (Auto) 0.1 TH/MM3 CBC Comment DIFF FINAL Differential Comment Prothrombin Time 10.6 SEC Prothromb Time International Ratio 1.0 RATIO Blood Urea Nitrogen 10 MG/DL Creatinine 0.78 MG/DL Random Glucose 157 MG/DL Calcium Level 9.4 MG/DL Magnesium Level 1.9 MG/DL Sodium Level 137 MEQ/L Potassium Level 3.9 MEQ/L Chloride Level 100 MEQ/L Carbon Dioxide Level 29.2 MEQ/L Anion Gap 8 MEQ/L Estimat Glomerular Filtration Rate 77 ML/MIN Troponin I LESS THAN 0.02 NG/ML MDM Medical Decision Making Medical Screen Exam Complete: Yes Emergency Medical Condition: Yes Medical Record Reviewed: Yes Interpretation(s) Twelve-lead EKG was reviewed by me. Normal sinus rhythm, normal axis, nonspecific ST-T wave changes. Heart rate of 80 bpm Differential Diagnosis ACS, non-STEMI, panic attack Narrative Course 5:11 PM patient was given IV Ativan to calm down. Awaiting for blood test results. Chest x-ray was done and resulted as negative by the radiologist. Given her risk factors I would like to admit her to the chest pain center to be ruled out. She was also given 2 baby aspirins to chew. Procedures EKG Prior to Arrival: No Scripts Atorvastatin (Atorvastatin) 20 Mg Tab 40 MG PO HS for Cholesterol Management for 30 Days, #30 TAB 0 Refills Prov: Maia Bertrand 10/27/17 Beth Enciso MD October 26, 2017 16:07
[2017-10-26 16:10] VITALS: BP 146/102; PULSE 78; RESP 26; TEMP 98.4; O2SAT 98
[2017-10-26 16:30] VITALS: O2SAT 98
[2017-10-26] MEDS ORDERED: ASPIRIN 81 MG CHEW TAB PO ONE (16:30)
[2017-10-26] MEDS ORDERED: LORazepam 2 MG/ML VIAL IV PUSH ONE (16:30)
[2017-10-26] MEDS ORDERED: SODIUM CHLORIDE 0.9% FLUSH 10 ML FLUSH IVF PRN (16:30)
[2017-10-26 16:47] LABS: AUTOMATED NEUTROPHIL # 4.8 TH/MM3 (1.8-7.7); BASOPHIL # 0.1 TH/MM3 (0-0.2); BASOPHIL % 0.7 % (0.0-2.0); EOSINOPHIL # 0.1 TH/MM3 (0-0.4); EOSINOPHIL % 0.7 % (0.0-4.0); HEMATOCRIT 41.8 % (35.0-46.0); LYMPH % 35.3 % (9.0-44.0); LYMPHOCYTE # 3.1 TH/MM3 (1.0-4.8); MEAN CELL VOLUME 87.3 FL (80.0-100.0); MEAN CORPUSCULAR HEMOGLOBIN 29.3 PG (27.0-34.0); MEAN CORPUSCULAR HGB CONC 33.6 % (32.0-36.0); MEAN PLATELET VOLUME 8.8 FL (7.0-11.0); MONO % 7.4 % (0.0-8.0); MONOCYTE # 0.6 TH/MM3 (0-0.9); NEUT % 55.9 % (16.0-70.0); PLATELET COUNT 233 TH/MM3 (150-450); RED BLOOD COUNT 4.79 MIL/MM3 (4.00-5.30); RED CELL DISTRIBUTION WIDTH 12.5 % (11.6-17.2); WHITE BLOOD COUNT 8.6 TH/MM3 (4.0-11.0)
--- NOTE | 2017-10-26 16:54 | RADRPT ---
EXAM DATE/TIME: 10/26/2017 16:21 [facility] COMPARISON: CHEST SINGLE AP, July 08, 2017, 14:40. INDICATIONS : Chest pain. MEDICAL HISTORY : Diabetes mellitus type II. Hiatal hernia. Asthma. SURGICAL HISTORY : Carpal tunnel. Lumbar fusion. ENCOUNTER: Initial ACUITY: 1 day PAIN SCORE: 8/10 LOCATION: Bilateral chest FINDINGS: A single view of the chest demonstrates the lungs to be symmetrically aerated without evidence of mas s, infiltrate or effusion. The cardiomediastinal contours are unremarkable. Osseous structures are intact. CONCLUSION: No acute disease. Mak Hinojosa MD on October 26, 2017 at 16:52 Board Certified Radiologist. This report was verified electronically.
[2017-10-26 16:55] VITALS: BP 145/83; PULSE 90; RESP 18; O2SAT 92
[2017-10-26 17:01] LABS: CHLORIDE 100 MEQ/L (98-107); SODIUM (NA) 137 MEQ/L (136-145)
[2017-10-26 17:03] LABS: CALCIUM 9.4 MG/DL (8.5-10.1)
[2017-10-26 17:04] LABS: BICARBONATE 29.2 MEQ/L (21.0-32.0); BLOOD UREA NITROGEN 10 MG/DL (7-18); GLUCOSE,RANDOM 157 MG/DL (74-106); MAGNESIUM 1.9 MG/DL (1.5-2.5)
[2017-10-26 17:06] LABS: PROTHROMBIN TIME - PATIENT 10.6 SEC (9.8-11.6)
[2017-10-26 17:07] LABS: CREATININE 0.78 MG/DL (0.50-1.00); GLOMERULAR FILTRATION RATE 77 ML/MIN (>89)
[2017-10-26 17:12] LABS: TROPONIN I LESS THAN 0.02 NG/ML (0.02-0.05)
[2017-10-26 18:15] VITALS: O2SAT 95
[2017-10-26] MEDS ORDERED: ACETAMINOPHEN 325 MG TAB PO PRN ×2 (18:15)
[2017-10-26] MEDS ORDERED: SODIUM CHLORIDE 0.9% FLUSH 10 ML FLUSH IV FLUSH PRN (18:15)
[2017-10-26] MEDS ORDERED: NALOXONE HCL 0.4 MG/ML AMP IV PUSH PRN (18:15)
[2017-10-26] MEDS ORDERED: GLUCAGON 1 MG/ML VIAL OTHER PRN (19:15)
[2017-10-26] MEDS ORDERED: PILL SPLITTER OTHER PRN (19:15)
[2017-10-26] MEDS ORDERED: DEXTROSE 50% IN WATER 50 ML VIAL(D50) IV PUSH PRN (19:15)
[2017-10-26 19:30] VITALS: O2SAT 94
[2017-10-26 20:00] VITALS: BP 131/66; PULSE 82; PULSE 85; RESP 20; TEMP 98.1; O2SAT 93
[2017-10-26] MEDS: DOCUSATE SODIUM 50 MG/SENNA 8.6 MG TAB PO SCH (21:00)
[2017-10-26] MEDS ORDERED: traZODone HCL 100 MG TAB PO SCH (21:00)
[2017-10-26] MEDS: INSULIN ASPART SUPPLEMENTAL SCALE SQ SCH (22:18)
[2017-10-26] MEDS: SODIUM CHLORIDE 0.9% FLUSH 10 ML FLUSH IV FLUSH SCH (22:19)
[2017-10-27] VITALS: BP 112/58; PULSE 79; RESP 18; TEMP 97.7; O2SAT 92
[2017-10-27 04:00] VITALS: BP 106/56; PULSE 75; RESP 18; TEMP 97.6; O2SAT 91
[2017-10-27 07:36] VITALS: O2SAT 92
[2017-10-27 07:50] VITALS: BP 111/55; PULSE 74; RESP 20; TEMP 96.9; O2SAT 93
[2017-10-27] MEDS: INSULIN ASPART SUPPLEMENTAL SCALE SQ SCH ×2 (08:00→12:00)
[2017-10-27] MEDS: SODIUM CHLORIDE 0.9% FLUSH 10 ML FLUSH IV FLUSH SCH (08:05)
[2017-10-27] MEDS: DOCUSATE SODIUM 50 MG/SENNA 8.6 MG TAB PO SCH (08:07)
--- NOTE | 2017-10-27 08:28 | HHI.HP ---
[facility] Physician Unknown Admission Diagnosis Chest pain, rule out ACS Diagnoses: Chief Complaint: Chest pain Travel History International Travel<30 Days: No Contact w/Intl Traveler <30 Da: No Traveled to Known Affected Are: No History of Present Illness This is a pleasant 52-year-old female patient with a known medical history of anxiety, depression, diabetes and hypertension who presented to the ED with complaints of chest pain. Patient states that while she was shopping with her son she developed a neck tightness that radiated to her midsternal chest, was tight in nature as well as shooting pain down her left arm causing left arm numbness. Patient denies any associated nausea or vomiting or diaphoresis. Does admit to associated shortness of breath. Patient states that the pain got better with aspirin and Ativan in the ED. Denies any known aggravating factors. Patient rated the pain a 10 out of 10 on pain scale. It should be noted that patient is undergoing increasing stressors, states her son is an alcoholic and she has been dealing with this constantly. Patient denies following with social media marketing specialist, does state she underwent a cardiac stress test 3 years ago which was negative. Does follow with PCP, last seen 2 months ago. Review of Systems Constitutional: DENIES: Fever, Chills Eyes: DENIES: Blurred vision, Diplopia Ears, nose, mouth, throat: DENIES: Vertigo Respiratory: COMPLAINS OF: Shortness of breath, DENIES: Cough, Sputum production Cardiovascular: COMPLAINS OF: Chest pain, DENIES: Palpitations Gastrointestinal: DENIES: Abdominal pain, Black stools, Bloody stools, Constipation, Diarrhea, Nausea, Vomiting Musculoskeletal: DENIES: Joint pain Immunologic/allergic: DENIES: Eczema Neurologic: DENIES: Abnormal gait Psychiatric: COMPLAINS OF: Anxiety Except as stated in HPI: all other systems reviewed are Neg Past Family Social History Past Medical History Anxiety depression Asthma Diabetes Hypertension History of unspecified heart murmur Chronic back pain GERD Fibromyalgia Past Surgical History Bilateral carpal tunnel repair Unspecified back fusion in the lumbar area Hysterectomy Tonsillectomy Reported Medications Active Albuterol Neb (Albuterol Sulfate) 2.5 Mg/0.5 Ml Neb 2.5 Mg NEB Q4HR NEB PRN Note: The Albuterol Sulfate Inhalation Solution is concentrated and must be diluted. Read complete instructions carefully before using. Ventolin Hfa 18 GM Inh (Albuterol Sulfate) 90 Mcg/Act Aer 2 Puff INH Q4-6H PRN Reported Trazodone (Trazodone HCl) 100 Mg Tablet 100 Mg PO HS Zoloft (Sertraline HCl) 25 Mg Tab 25 Mg PO DAILY Gabapentin 100 Mg Cap 100 Mg PO DAILY Metformin (Metformin HCl) 500 Mg Tab 500 Mg PO DAILY With a meal Allergies: Coded Allergies: cyclobenzaprine (Unverified Allergy, Unknown, HALLUCINATIONS, 10/26/17) erythromycin base (Unverified Allergy, Unknown, GI UPSET, 10/26/17) tramadol (Unverified Allergy, Unknown, GI UPSET, 10/26/17) Active Ordered Medications Current Medications Medications (Trade) Dose Ordered Sig/Pepe Route Start Time Stop Time Status Last Admin (NS Flush) 2 ml UNSCH PRN IV FLUSH 10/26/17 18:15 (NS Flush) 2 ml BID IV FLUSH 10/26/17 21:00 10/27/17 08:05 (Tylenol) 650 mg Q4H PRN PO 10/26/17 18:15 (Tylenol) 650 mg Q6H PRN PO 10/26/17 18:15 (Narcan Inj) 0.4 mg UNSCH PRN IV PUSH 10/26/17 18:15 (Celine-Colace) 1 tab BID PO 10/26/17 21:00 (Neurontin) 100 mg DAILY PO 10/27/17 09:00 10/27/17 08:05 (Zoloft) 25 mg DAILY PO 10/27/17 09:00 10/27/17 08:05 (Desyrel) 100 mg HS PO 10/26/17 21:00 10/26/17 22:19 (NovoLOG SUPPLEMENTAL SCALE) 1 ACHS SLIDING SCALE SQ 10/26/17 21:00 10/26/17 22:18 (Pill Splitter) 1 ea UNSCH PRN OTHER 10/26/17 19:15 (D50w (Vial) Inj) 50 ml UNSCH PRN IV PUSH 10/26/17 19:15 (Glucagon Inj) 1 mg UNSCH PRN OTHER 10/26/17 19:15 Family History Denies any recent significant family medical history. Social History Patient denies any tobacco, alcohol or illicit drug use. Physical Exam Vital Signs Vital Signs Date Time Temp Pulse Resp B/P (MAP) Pulse Ox O2 Delivery O2 Flow Rate FiO2 10/27/17 07:36 92 21 10/27/17 04:00 97.6 75 18 106/56 (73) 91 10/27/17 00:00 97.7 79 18 112/58 (76) 92 10/26/17 20:00 98.1 82 20 131/66 (87) 93 10/26/17 20:00 85 10/26/17 19:30 94 21 10/26/17 18:15 95 10/26/17 18:00 10/26/17 16:55 90 18 145/83 (103) 92 Room Air 10/26/17 16:30 98 Room Air 10/26/17 16:30 98 Room Air 10/26/17 16:10 98.4 78 26 146/102 (117) 98 Physical Exam GENERAL: Well-developed, well-nourished patient in [facility]. SKIN: Warm and dry. No rash. HEAD: Normocephalic. Atraumatic. EYES: Pupils equal and round. No scleral icterus. No injection or drainage. ENT: No nasal bleeding or discharge. Mucous membranes pink and moist. NECK: Supple. Trachea midline. CARDIOVASCULAR: Regular rate and rhythm. S1, S2 noted. No murmur appreciated. Mild chest discomfort to palpation midsternal area RESPIRATORY: No accessory muscle use. Clear to auscultation. Breath sounds equal bilaterally. GASTROINTESTINAL: Abdomen soft, non-tender, nondistended. Normoactive bowel sounds x4. MUSCULOSKELETAL: No obvious deformities. Extremities without clubbing, cyanosis , or edema. NEUROLOGICAL: Awake and alert. No obvious cranial nerve deficits. Motor grossly within normal limits. 5/5 muscle strength in bilateral upper and lower extremities. Normal speech. PSYCHIATRIC: Appropriate mood and affect; insight and judgment normal. Laboratory Laboratory Tests Test 10/26/17 16:30 10/26/17 19:25 10/26/17 22:05 10/27/17 06:57 White Blood Count 8.6 Red Blood Count 4.79 Hemoglobin 14.0 Hematocrit 41.8 Mean Corpuscular Volume 87.3 Mean Corpuscular Hemoglobin 29.3 Mean Corpuscular Hemoglobin Concent 33.6 Red Cell Distribution Width 12.5 Platelet Count 233 Mean Platelet Volume 8.8 Neutrophils (%) (Auto) 55.9 Lymphocytes (%) (Auto) 35.3 Monocytes (%) (Auto) 7.4 Eosinophils (%) (Auto) 0.7 Basophils (%) (Auto) 0.7 Neutrophils # (Auto) 4.8 Lymphocytes # (Auto) 3.1 Monocytes # (Auto) 0.6 Eosinophils # (Auto) 0.1 Basophils # (Auto) 0.1 CBC Comment DIFF FINAL Differential Comment Prothrombin Time 10.6 Prothromb Time International Ratio 1.0 Blood Urea Nitrogen 10 Creatinine 0.78 Random Glucose 157 Calcium Level 9.4 Magnesium Level 1.9 Sodium Level 137 Potassium Level 3.9 Chloride Level 100 Carbon Dioxide Level 29.2 Anion Gap 8 Estimat Glomerular Filtration Rate 77 Troponin I LESS THAN 0.02 LESS THAN 0.02 LESS THAN 0.02 Result Diagram: 10/26/17 1630 10/26/17 1630 Imaging Last Impressions Chest X-Ray 10/26/17 1616 Signed Impressions: Service Date/Time: Thursday, October 26, 2017 16:21 - CONCLUSION: No acute disease. Mak Hinojosa MD Septic Shock Reassessment Septic shock perfusion: reassessment completed Caprini VTE Risk Assessment Caprini VTE Risk Assessment: No/Low Risk (score <= 1) Caprini Risk Assessment Model Point Value = 1 Point Value = 2 Point Value = 3 Point Value = 5 Age 41-60 Minor surgery BMI > 25 kg/m2 Swollen legs Varicose veins or History of unexplained or recurrent spontaneous Oral contraceptives or hormone replacement Sepsis (< 1 month) Serious lung disease, including pneumonia (< 1 month) Abnormal pulmonary function Acute myocardial infarction Congestive heart failure (< 1 month) History of inflammatory bowel disease Medical patient at bed rest Age 61-74 Arthroscopic surgery Major open surgery (> 45 min) Laparoscopic surgery (> 45 min) Malignancy Confined to bed (> 72 hours) Immobilizing plaster cast Central venous access Age >= 75 History of VTE Family history of VTE Factor V Leiden Prothrombin [id number] Lupus anticoagulant Anticardiolipin antibodies Elevated serum homocysteine Heparin-induced thrombocytopenia Other congenital or acquired thrombophilia Stroke (< 1 month) Elective arthroplasty Hip, pelvis, or leg fracture Acute spinal cord injury (< 1 month) Prophylaxis Regimen Total Risk Factor Score Risk Level Prophylaxis Regimen 0-1 Low Early ambulation 2 Moderate Order ONE of the following: *Sequential Compression Device (SCD) *Heparin 5000 units SQ BID 3-4 Higher Order ONE of the following medications: *Heparin 5000 units SQ TID *Enoxaparin/Lovenox 40 mg SQ daily (WT < 150 kg, CrCl > 30 mL/min) *Enoxaparin/Lovenox 30 mg SQ daily (WT < 150 kg, CrCl > 10-29 mL/min) *Enoxaparin/Lovenox 30 mg SQ BID (WT < 150 kg, CrCl > 30 mL/min) AND/OR *Sequential Compression Device (SCD) 5 or more Highest Order ONE of the following medications: *Heparin 5000 units SQ TID (Preferred with Epidurals) *Enoxaparin/Lovenox 40 mg SQ daily (WT < 150 kg, CrCl > 30 mL/min) *Enoxaparin/Lovenox 30 mg SQ daily (WT < 150 kg, CrCl > 10-29 mL/min) *Enoxaparin/Lovenox 30 mg SQ BID (WT < 150 kg, CrCl > 30 mL/min) AND *Sequential Compression Device (SCD) Assessment and Plan Problem List: (1) Chest pain ICD Code: R07.9 - Chest pain, unspecified Plan: Rule out ACS vs musculoskeletal cause vs anxiety Patient has been admitted to the chest pain center for ruling out ACS purposes. His serial EKGs and serial troponins have been ordered for ruling out ACS purposes. Serial troponins flat. EKG reviewed showing normal sinus rhythm, controlled heart rate, nonspecific ST changes. Chest pain has diminished with use of aspirin and Ativan in the ED. As well as Ketoralac IV. Chest x-ray reviewed showing no acute disease. Vital signs have been stable. CBC and BMP reviewed essentially unremarkable. Lipid panel ordered and pending. PCP manages DM. Patient will undergo cardiac nuclear stress test to further rule out any ischemia. Patient is stable at this time and agreeable to the plan. Further hospitalization and treatment plan will depend on nuclear imaging results. (2) Diabetes ICD Code: E11.9 - Type 2 diabetes mellitus without complications Plan: ACCU check ASHS, sliding scale, cover as needed. Hold home Metformin. Continue home Gabapentin. Assessment and Plan Patient underwent cardiac nuclear stress test report reviewed showing EF of 65% no reversibility or ischemia noted. Patient updated about results. Will discharge home follow-up PCP. Symptoms have resolved. Patient educated about importance of returning to ED if symptoms persist or worsen. Patient is stable at this time and agreeable to the plan. Maia Bertrand October 27, 2017 08:28
[2017-10-27] MEDS ORDERED: KETOROLAC TROMETHAMINE 30 MG/ML (IVP) VIAL IV PUSH ONE (08:30)
[2017-10-27 08:32] LABS: AUTOMATED NEUTROPHIL # 3.7 TH/MM3 (1.8-7.7); BASOPHIL % 0.6 % (0.0-2.0); EOSINOPHIL # 0.1 TH/MM3 (0-0.4); EOSINOPHIL % 0.9 % (0.0-4.0); HEMATOCRIT 40.9 % (35.0-46.0); HEMOGLOBIN 13.5 GM/DL (11.6-15.3); LYMPH % 38.8 % (9.0-44.0); LYMPHOCYTE # 2.7 TH/MM3 (1.0-4.8); MEAN CELL VOLUME 87.5 FL (80.0-100.0); MEAN CORPUSCULAR HEMOGLOBIN 28.9 PG (27.0-34.0); MEAN PLATELET VOLUME 8.8 FL (7.0-11.0); MONO % 8.3 % (0.0-8.0); MONOCYTE # 0.6 TH/MM3 (0-0.9); NEUT % 51.4 % (16.0-70.0); PLATELET COUNT 222 TH/MM3 (150-450); RED BLOOD COUNT 4.67 MIL/MM3 (4.00-5.30); RED CELL DISTRIBUTION WIDTH 12.3 % (11.6-17.2); WHITE BLOOD COUNT 7.1 TH/MM3 (4.0-11.0)
[2017-10-27 08:38] LABS: CHLORIDE 104 MEQ/L (98-107); SODIUM (NA) 139 MEQ/L (136-145)
[2017-10-27] MEDS ORDERED: SERTRALINE HCL 50 MG TAB PO SCH (09:00)
[2017-10-27] MEDS ORDERED: GABAPENTIN 100 MG CAP PO SCH (09:00)
[2017-10-27 09:01] LABS: ALBUMIN 3.3 GM/DL (3.4-5.0); ALKALINE PHOSPHATASE 65 U/L (45-117); ALT (GPT) 24 U/L (10-53); AST (GOT) 16 U/L (15-37); BICARBONATE 29.4 MEQ/L (21.0-32.0); BLOOD UREA NITROGEN 9 MG/DL (7-18); CALCIUM 8.5 MG/DL (8.5-10.1); CREATININE 0.71 MG/DL (0.50-1.00); GLOMERULAR FILTRATION RATE 86 ML/MIN (>89); GLUCOSE,RANDOM 196 MG/DL (74-106); TOTAL BILIRUBIN ADULT 0.4 MG/DL (0.2-1.0); TOTAL PROTEIN 7.3 GM/DL (6.4-8.2)
[2017-10-27] MEDS ORDERED: REGADENOSON INJ 0.4 MG/5 ML SYR IV ONE (10:46)
[2017-10-27 11:50] VITALS: BP 122/59; PULSE 73; RESP 20; TEMP 96.2; O2SAT 91
--- NOTE | 2017-10-27 12:24 | EKG ---
Date Performed: 10/26/2017 Time Performed: 16:01:48 PTAGE: 52 years EKG: Sinus rhythm NORMAL ECG PREVIOUS TRACING : 07/08/2017 11.24 Since the previous tracing, no significant change noted DOCTOR: Bryce Encinas Interpretating Date/Time 10/27/2017 12:23:47
--- NOTE | 2017-10-27 12:26 | EKG ---
Date Performed: 10/26/2017 Time Performed: 20:24:26 PTAGE: 52 years EKG: Sinus rhythm WITH FIRST DEGREE AV BLOCK LOW QRS VOLTAGE IN PRECORDIAL LEADS ABNORMAL ECG PREVIOUS TRACING : 10/26/2017 16.01 Since the previous tracing, no significant change noted DOCTOR: Bryce Encinas Interpretating Date/Time 10/27/2017 12:24:18
--- NOTE | 2017-10-27 12:26 | EKG ---
Date Performed: 10/26/2017 Time Performed: 21:59:48 PTAGE: 52 years EKG: Sinus rhythm WITH FIRST DEGREE AV BLOCK LOW QRS VOLTAGE IN PRECORDIAL LEADS NONSPECIFIC T-WAVE ABNORMALITY ABNORM AL ECG PREVIOUS TRACING : 10/26/2017 20.24 Since the previous tracing, no significant change noted DOCTOR: Bryce Encinas Interpretating Date/Time 10/27/2017 12:24:48
--- NOTE | 2017-10-27 12:52 | RADRPT ---
EXAM DATE/TIME: 10/27/2017 10:41 [facility] COMPARISON: No previous studies available for comparison. INDICATIONS : Susbternal chest pain radiating to neck and jaw. Angina. DOSE: 35 mCi Tc99m Myoview at stress. 11 mCi Tc99m Myoview at rest. 0.4 mg Lexiscan STRESS SYMPTOMS: Shortness of breath, nausea. EJECTION FRACTION: 65% MEDICAL HISTORY : Gastroesophageal reflux disease. Diabetes mellitus type 2. Asthma. SURGICAL HISTORY : Hysterectomy. ENCOUNTER: Initial ACUITY: 1 day PAIN SCALE: 6/10 LOCATION: Substernal chest TECHNIQUE: The patient underwent pharmacologic stress with infusion of prescribed dose. Continuous ECG tracing was monitored during stress. Gated SPECT imaging was performed after stress and conventional SPECT i maging was performed at rest. The examination was performed on a SPECT/CT scanner, both attenuation and non-corrected datasets were reviewed. FINDINGS: DISTRIBUTION: The maximum perfused segment at stress is in the anterolateral wall. PERFUSION STUDY: The pattern of perfusion at stress is within normal limits. No fixed or reversible perfusion defect i s identified. GATED STUDY: There is intact wall motion and thickening without hypokinetic or dyskinetic segments. CONCLUSION: 1. Left ventricle perfusion is within normal limits. No fixed or reversible perfusion defect identifi ed. 2. Normal left ventricle wall motion and ejection fraction. RISK CATEGORY: Low (<1% Annual Mortality Rate) Dyllan Thapa MD on October 27, 2017 at 12:42 Board Certified Radiologist. This report was verified electronically.
[2017-10-27 13:49] LABS: CHOLESTEROL/ HDL RATIO 8.31 RATIO; HDL CHOLESTEROL 30.8 MG/DL (40.0-60.0)
--- NOTE | 2017-10-27 13:51 | HHI.DCPOC ---
Discharge Care Plan Diagnosis: (1) Diabetes (2) Chest pain Goals to Promote Your Health * To prevent worsening of your condition and complications * To maintain your health at the optimal level Directions to Meet Your Goals Take your medications as prescribed Follow your dietary instruction Follow activity as directed Keep your appointments as scheduled Take your immunizations and boosters as scheduled If your symptoms worsen call your PCP, if no PCP go to Urgent Care Center or Emergency Room Smoking is Dangerous to Your Health. Avoid second hand smoke Call the 24-hour hour crisis hotline for domestic abuse at Maia Bertrand October 27, 2017 13:51
[2017-10-27] MEDS ORDERED: ATOR20TA15 PO (13:52)
--- NOTE | 2017-10-28 16:23 | TR ---
Date Performed: 10/27/2017 Time Performed: 11:13:12 DOCTOR: Shankar Berg DRUG LIST: CLINICAL HISTORY: CHEST PAIN REASON FOR TEST: REASON FOR ENDING: OBSERVATION: CONCLUSION: COMMENTS: Lexiscan stress test was performed under standard four minute protocol. Radionuclide was injected one minute prior to ending the test. No electrocardiographic abormalities were present t o suggest ischemia. Nuclear imaging and interpretation are pending.
== END 2017-10-27 14:31 | disposition home or self-care (01) ==
LOC: PHED 15:59 → PHEDA 17:26 → PH3B 18:05
PROVIDERS: ADMIT Hospitalist; ATTEND Hospitalist
DX: M54.2 Cervicalgia (principal); E11.9 Type 2 diabetes mellitus without complications; R07.9 Chest pain, unspecified; Z82.49 Family history of ischemic heart disease and other diseases of the circulatory system; F41.9 Anxiety disorder, unspecified; J45.909 Unspecified asthma, uncomplicated; R01.1 Cardiac murmur, unspecified; M79.7 Fibromyalgia; K21.9 Gastro-esophageal reflux disease without esophagitis; M54.9 Dorsalgia, unspecified; G89.29 Other chronic pain; Z79.899 Other long term (current) drug therapy; Z79.84 Long term (current) use of oral hypoglycemic drugs; I10 Essential (primary) hypertension; R20.0 Anesthesia of skin; I44.0 Atrioventricular block, first degree
CPT/HCPCS: 71045; 78452; 80048; 80053; 80061; 82948; 83690; 83735; 84484; 85025; 85610; 93005; 93017; 96372; 96374; 96375; 96376; 99285; A9502; G0378; J1815; J1885; J2060; J2785